=== PATIENT | female | born 1990 | race Caucasian/White ===

== ENCOUNTER 2018-05-24 05:25 | Day surgery (SDC) | payer BC ==
[2018-05-23 10:56] VITALS: BMI 23.1
[~2018-05-24 05:25] MED LIST: LIDOCAINE 1% P/F 10 MG/ML VIAL INF ONE
[2018-05-24] MEDS ORDERED: PROPOFOL 20 ML ONE (10:43)
[2018-05-24] MEDS ORDERED: MIDAZOLAM HCL 2 MG/2 ML SINGLE DOSE VIAL ONE (10:43)
[2018-05-24] MEDS ORDERED: oxyCODONE HCL 5 MG TABLET PO PRN ×2 (10:50)
[2018-05-24] MEDS ORDERED: ONDANSETRON 4 MG/2 ML VIAL IVPUSH PRN (10:50)
[2018-05-24] MEDS ORDERED: LACTATED RINGERS SOLUTION 1,000 ML IV SCH (11:00)
[2018-05-24] MEDS ORDERED: IBUPROFEN 800 MG/8 ML IJ IVPB PRN (12:30)
[2018-05-24] MEDS ORDERED: ACETAMINOPHEN 325 MG TABLET (FP) PO PRN (12:30)
--- NOTE | 2018-05-24 12:30 | HP ---
History & Physical Update - History History: No Change - Physical Physical: No Change - Assessment Assessment: No Change - Plan Plan: No Change (Agree with H&P from 05/22, plan for bartholin gland marsupialization)
[2018-05-24] MEDS ORDERED: IBUPROFEN 600 MG TABLET (FP) PO ONE ×2 (15:32→15:56)
[2018-05-24 16:40] VITALS: TEMP 98.3
[2018-05-24 18:12] VITALS: BP 97/62; PULSE 62
--- NOTE | 2018-05-25 13:41 | OP ---
Operative Note - Note: Operative Date: 05/24/18 ([id number]) Pre-Operative Diagnosis: left bartholin gland cyst Operation: left bartholin gland cyst marsupialization Findings: 2cm left bartholin gland cyst Post-Operative Diagnosis: Same as Pre-op Surgeon: Jeanne Mccrary Anesthesiologist/PRINCIPAL SYSTEMS ENGINEER: Tori Lockett Anesthesia: General Estimated Blood Loss (mls): 25 Operative Report Dictated: Yes
--- NOTE | 2018-05-26 08:08 | OP ---
DATE OF OPERATION: 05/24/2018 PREOPERATIVE DIAGNOSIS: Left Bartholin cyst. POSTOPERATIVE DIAGNOSIS: Left Bartholin cyst. PROCEDURE: Marsupialization of left Bartholin gland cyst. ANESTHESIA: General by Tori Lockett, REF-DRILLING ASSISTANT. COMPLICATIONS: None. ESTIMATED BLOOD LOSS: 25 mL. DISPOSITION: Stable to PACU. BRIEF HISTORY AND PROCEDURE: Patient is a 27-year-old female who had been seen in the office with complaints of a Bartholin gland cyst. The patient was counseled on her options and elected to undergo a marsupialization in the operating room. The patient was admitted to [facility] on May 24, 2018, and consents for the procedure which had been signed in the office were reconfirmed. The patient was taken back to the operating room, given general anesthesia and placed in the dorsal lithotomy position and was prepped and draped in the usual sterile fashion. A hard timeout was performed and the Bartholin gland cyst was identified and the skin on the labia minora was incised over the area of the cyst. The cyst wall was identified and grasped and tagged with two 3-0 Vicryl sutures. The cyst was then entered sharply with the scalpel. Clear fluid was noted to drain. The cyst wall was then sutured to the vulvar skin leaving the cyst open for drainage in the standard marsupialization procedure. Minimal bleeding was noted from the surgical site where any bleeding was controlled with the Bovie device. Due to slight bleeding after usage of the Bovie a small amount of packing was placed into the cyst opening and a gauze was applied. All instruments were removed from the area and the patient was awoken from anesthesia and sponge and instrument count was reported to be correct. The patient had tolerated the procedure well. Was recovering in stable condition in the PACU after the procedure. GITA JOSEPH DO /[id number]
== END 2018-05-24 17:00 | disposition home or self-care (01) ==
LOC: JASU-SURG 05:25
PROVIDERS: ATTEND Obstetrics & Gynecology
PROC: 0U9L0ZZ Drainage of Vestibular Gland, Open Approach (ICD-10-PCS; principal; 2018-05-24 12:00)
DX: N75.0 Cyst of Bartholin's gland (principal)
CPT/HCPCS: 86850; 86900; 86901; 94760

== ENCOUNTER 2018-09-12 19:06 | Emergency (ER) | payer BC ==
--- NOTE | 2018-09-12 19:21 | PDOC ---
Rapid Medical Evaluation Time Seen by Provider: 09/12/18 19:18 Medical Evaluation: Allergies Allergy/AdvReac Type Severity Reaction Status Date / Time No Known Allergies Allergy Verified 05/24/18 11:53 09/12/18 19:19 I have performed a brief in-person evaluation of this patient. 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 Discharge Disposition - Diagnosis - Referrals - Patient Instructions - Post Discharge Activity
[2018-09-12 19:26] VITALS: BP 106/64; PULSE 96; TEMP 97.9; BMI 22.1
[2018-09-12 20:00] LABS: BASO % 0.6 % (0-2.0); EOS % 1.9 % (0-4.5); HEMATOCRIT 34.9 % (32.4-45.2); HEMOGLOBIN 12.1 GM/dL (10.7-15.3); LYMPH % 25.1 % (8-40); MCH 32.4 pg (25.7-33.7); MCHC 34.8 g/dl (32.0-36.0); MEAN CELL VOLUME 93.1 fl (80-96); MONO % 9.9 % (3.8-10.2); NEUT % 62.5 % (42.8-82.8); PLATELET COUNT 264 K/MM3 (134-434); RBC 3.74 M/mm3 (3.60-5.2); RDW 13.4 % (11.6-15.6); WHITE BLOOD COUNT 7.1 K/mm3 (4.0-10.0)
[2018-09-12 20:02] LABS: HCG,QUALITATIVE URINE Positive
[2018-09-12 20:06] LABS: URINE APPEARANCE CLEAR; URINE BILIRUBIN NEGATIVE (<2.0 mg/dL); URINE COLOR COLORLESS; URINE GLUCOSE (UA) NEGATIVE (NEGATIVE); URINE KETONE NEGATIVE (NEGATIVE); URINE LEUK ESTERASE NEGATIVE (NEGATIVE); URINE NITRITE NEGATIVE (NEGATIVE); URINE PROTEIN NEGATIVE (NEGATIVE); URINE UROBILINOGEN NEGATIVE mg/dL (0.2-1.0)
[2018-09-12 20:30] LABS: ANION GAP 7 MMOL/L (8-16); BLOOD UREA NITROGEN 10 mg/dL (7-18); CALCIUM 8.6 mg/dL (8.5-10.1); CHLORIDE 105 mmol/L (98-107); CO2 25 mmol/L (21-32); CREATININE 0.5 mg/dL (0.55-1.3); GLUCOSE,RANDOM 90 mg/dL (74-106); SODIUM 137 mmol/L (136-145)
--- NOTE | 2018-09-12 21:30 | PDOC ---
History of Present Illness - General Chief Complaint: Labor Assessment Stated Complaint: PCP SENT/EVALUATION/10 WKS Time Seen by Provider: 09/12/18 19:18 Past History - Past Medical History Allergies/Adverse Reactions: Allergies Allergy/AdvReac Type Severity Reaction Status Date / Time No Known Allergies Allergy Verified 05/24/18 11:53 Home Medications: Ambulatory Orders Prenat 115/Iron Fum/Folic/Dss [ 19 Tablet] 1 tab PO DAILY 09/12/18 Anemia: No Asthma: No Cancer: No Cardiac Disorders: No CVA: No COPD: No CHF: No Dementia: No Diabetes: No GI Disorders: No Disorders: No HTN: No Hypercholesterolemia: No Liver Disease: No Seizures: No Thyroid Disease: No - Surgical History Abdominal Surgery: No Appendectomy: No Cardiac Surgery: No - Suicide/Smoking/Psychosocial Hx Smoking History: Never smoked Information on smoking cessation initiated: No Hx Alcohol Use: No Drug/Substance Use Hx: No Substance Use Type: None Hx Substance Use Treatment: No *Physical Exam - Vital Signs Last Vital Signs Temp Pulse Resp BP Pulse Ox 97.9 F 96 H 20 106/64 100 09/12/18 19:23 09/12/18 19:23 09/12/18 19:23 09/12/18 19:23 09/12/18 19:23 Moderate Sedation - Procedure Monitoring Vital Signs: Procedure Monitoring Vital Signs Temperature 97.9 F 09/12/18 19:23 Pulse Rate 96 H 09/12/18 19:23 Respiratory Rate 20 09/12/18 19:23 Blood Pressure 106/64 09/12/18 19:23 O2 Sat by Pulse Oximetry (%) 100 09/12/18 19:23 ED Treatment Course - LABORATORY CBC & Chemistry Diagram: 09/12/18 19:46 09/12/18 19:46 - ADDITIONAL ORDERS Additional order review: Laboratory Results 09/12/18 09/12/18 19:46 19:46 Sodium 137 Potassium 4.0 Chloride 105 Carbon Dioxide 25 Anion Gap 7 L BUN 10 Creatinine 0.5 L Creat Clearance w eGFR > 60 Random Glucose 90 Calcium 8.6 Beta HCG, Quant 00233.2 Urine Color Colorless Urine Appearance Clear Urine pH 7.0 Ur Specific [place] 1.003 L Urine Protein Negative Urine Glucose (UA) Negative Urine Ketones Negative Urine Blood Negative Urine Nitrite Negative Urine Bilirubin Negative Urine Urobilinogen Negative Ur Leukocyte Esterase Negative Urine HCG, Qual Positive 09/12/18 19:46 RBC 3.74 MCV 93.1 MCHC 34.8 RDW 13.4 MPV 8.0 D Neutrophils % 62.5 D Lymphocytes % 25.1 D Monocytes % 9.9 Eosinophils % 1.9 Basophils % 0.6 Medical Decision Making - Medical Decision Making 09/12/18 21:29 28yoF at 10w by dates presents w/ likely missed . - EVUS - beta *DC/Admit/Observation/Transfer Diagnosis at time of Disposition: - Discharge Dispostion Disposition: HOME Decision to Admit order: No - Referrals Referrals: Jeanne Mccrary DO [Primary Care Provider] - - Patient Instructions Additional Instructions: Please call Dr. Mccrary's office in the morning. You have what is called a "missed ". The fetus does not have a heartbeat and is not growing. This means that you need a procedure to remove the from your uterus. Dr. Mccrary's office will arrange this with you. Return to ER for: vaginal bleeding more than 1 pad per hour fever over 100.4 abnormal pus or bad smelling vaginal discharge severe pelvic pain. - Post Discharge Activity
== END 2018-09-12 23:49 | disposition home or self-care (01) ==
LOC: JER 19:06
DX: O26.891 Other specified pregnancy related conditions, first trimester (principal); Z3A.10 10 weeks gestation of pregnancy
CPT/HCPCS: 36415; 76801-TC; 80048; 81003; 84702; 84703; 85025; 87086; 99282-25

== ENCOUNTER 2018-09-19 04:53 | Day surgery (SDC) | payer BC ==
[2018-09-17 11:11] VITALS: BMI 22.1
[2018-09-19] MEDS ORDERED: ACETAMINOPHEN 325 MG TABLET (FP) PO PRN (10:42)
[2018-09-19] MEDS ORDERED: IBUPROFEN 800 MG/8 ML IJ IVPB PRN (10:42)
--- NOTE | 2018-09-19 10:42 | HP ---
History & Physical Update - History History: No Change - Physical Physical: No Change - Assessment Assessment: No Change - Plan Plan: No Change (Agree with H&P from 09/14/18 - missed ab at 8 weeks for suction D &C)
[2018-09-19] MEDS ORDERED: LACTATED RINGERS SOLUTION 1,000 ML IV SCH ×2 (10:45→12:30)
[2018-09-19] MEDS ORDERED: ONDANSETRON 4 MG/2 ML VIAL IVPUSH PRN (12:27)
[2018-09-19] MEDS ORDERED: oxyCODONE HCL 5 MG TABLET PO PRN (12:27)
--- NOTE | 2018-09-19 12:45 | OP ---
Operative Note - Note: Operative Date: 09/19/18 Pre-Operative Diagnosis: missed Operation: suction D&C Post-Operative Diagnosis: Same as Pre-op Surgeon: Jeanne Mccrary Anesthesiologist/INSURANCE RISK ANALYST: Griselda Menon Anesthesia: EMIGDIO Specimens Removed: products of conception Estimated Blood Loss (mls): 15 Operative Report Dictated: Yes
[2018-09-19 13:56] VITALS: TEMP 97.6
[2018-09-19 15:13] VITALS: BP 90/54; PULSE 81
--- NOTE | 2018-09-19 20:18 | OP ---
DATE OF OPERATION: 09/19/2018 PREOPERATIVE DIAGNOSIS: Missed , approximately 8 weeks' gestation. POSTOPERATIVE DIAGNOSIS: Missed , approximately 8 weeks' gestation. PROCEDURE: Suction dilation and curettage. SURGEON: Jeanne Mccrary D.O. ANESTHESIA: MAC ANESTHESIOLOGIST: Griselda Menon MD SPECIMENS REMOVED: Products of conception sent to pathology for fresh evaluation and chromosomal analysis. ESTIMATED BLOOD LOSS: 50 mL. COMPLICATIONS: None. DISPOSITION: Stable to PACU. COUNTS: Sponge, needle, instrument counts correct. BRIEF HISTORY AND PROCEDURE: Patient is a 28-year-old female who had been seen in the office several times for positive test and 3 recent ultrasounds were found to have no progression in the growth and no heart rate noted. The patient was diagnosed with missed , she was counseled on her options, and she elected to undergo the above listed procedure. Patient was admitted to [facility] on September 19, 2018, consents for procedure which were signed on September 14, 2018, were confirmed. The patient was then taken back to the operating room and given MAC anesthesia by Dr. Griselda Menon and placed in dorsal lithotomy position. A hard timeout was performed after she was prepped and draped in the usual sterile fashion. A speculum was placed inside the vagina. The cervix was grasped with a tenaculum and dilated to accommodate a size 7 suction curet, which was advanced to the fundus. Several passes of the suction curet were completed, and then with a sharp curet, all 4 vila of the uterus were curetted until adequate uterine cry was appreciated, and then one final pass of the suction curet to remove all the tissue was completed bleeding was minimal. The tenaculum was removed from the cervix. No bleeding from the tenaculum sites was appreciated. All other instruments were removed from the vagina, and sponge and instrument counts were reported to be correct. The patient tolerated the procedure in stable condition in the PACU at the time of this dictation. JEANNE MCCRARY DO /[id number]
--- NOTE | 2018-09-20 18:08 | PATH ---
Surgical Pathology Report Patient Name: LAISHA BAUTISTA Med. Rec. #: [id number] /Age/Gender: 1990 (Age: 28) / F Account: [id number] Location: [facility] SURGICAL Taken: 09/19/2018 Received: 09/19/2018 Reported: 09/20/2018 Physicians: Jeanne Mccrary M.D. Specimen(s) Received PRODUCTS OF CONCEPTION Clinical History Missed Final Diagnosis PRODUCTS OF CONCEPTION: CHORIONIC VILLI PRESENT, CONSISTENT WITH PRODUCTS OF CONCEPTION. Electronically Signed Nicole Berman M.D. Gross Description Received fresh labeled "products of conception," is an 8.5 x 7.0 x 1.0 cm aggregate of eubanks-red soft tissue fragments admixed with blood clot. Villous tissue is identified. No somatic tissue is identified. A senior human resources representative portion of villous tissue is placed in RPMI solution and sent for chromosomal analysis. An additional senior human resources representative portion is submitted in one cassette. /09/19/2018 saudi09/19/2018
== END 2018-09-19 14:45 | disposition home or self-care (01) ==
LOC: JASU-SURG 04:53
PROVIDERS: ATTEND Obstetrics & Gynecology
PROC: 10D17ZZ Extraction of Products of Conception, Retained, Via Natural or Artificial Opening (ICD-10-PCS; principal; 2018-09-19 11:30)
DX: O02.1 Missed abortion (principal); Z3A.08 8 weeks gestation of pregnancy
CPT/HCPCS: 88305-TC; 94760

== ENCOUNTER 2022-04-18 10:30 | Inpatient (IN) | payer BC ==
[2022-04-18 11:33] LABS: BASO % 0.4 % (0-2.0); EOS % 0.6 % (0-4.5); HEMATOCRIT 37.4 % (32.4-45.2); HEMOGLOBIN 12.3 GM/dL (10.7-15.3); LYMPH % 14.1 % (8-40); MCH 30.3 pg (25.7-33.7); MCHC 32.9 g/dl (32.0-36.0); MEAN PLT VOLUME 9.4 fl (7.5-11.1); MONO % 9.4 % (3.8-10.2); NEUT % 75.5 % (42.8-82.8); PLATELET COUNT 204 10^3/uL (134-434); RBC 4.06 M/mm3 (3.60-5.2); RDW 14.3 % (11.6-15.6); WHITE BLOOD COUNT 11.5 K/mm3 (4.0-10.0)
[2022-04-18 11:39] LABS: INR 0.86 (0.83-1.09); PROTHROMBIN TIME (PATIENT) 9.9 SEC (9.7-13.0)
[2022-04-18 11:42] LABS: ACTIVATED PTT 27.3 SECONDS (25.2-36.5)
[2022-04-18] MEDS ORDERED: NALOXONE HCL 0.4 MG/ML VIAL IVPUSH PRN (11:59)
[2022-04-18] MEDS ORDERED: FENTANYL/BUPIVACAINE/NS/PF - PCEA - 50 ML DISP.SYRIN EP SCH (12:00)
[2022-04-18 12:01] LABS: CREATININE 0.6 mg/dL (0.55-1.3)
[2022-04-18] MEDS ORDERED: BUPIVACAINE HCL/PF 0.25% (2.5MG/ML) 10 ML VIAL ONE (12:01)
[2022-04-18] MEDS ORDERED: FENTANYL/BUPIVACAINE/NS/PF - PCEA - 50 ML DISP.SYRIN EP ONE (12:21)
[2022-04-18 12:23] LABS: SYPHILIS W/ RPR CONF NON-REACTIVE (NONREACTIVE)
[2022-04-18 12:30] VITALS: BMI 29.8
[2022-04-18] MEDS ORDERED: ELECTROLYTE-148 SOLN 1,000 ML IV SCH (14:00)
[2022-04-18] MEDS ORDERED: BISACODYL 10 MG SUPP.RECT RC PRN (15:22)
[2022-04-18] MEDS ORDERED: WITCH HAZEL 50% (TUCKS) 40 PAD/JAR PAD TP PRN (15:22)
[2022-04-18] MEDS ORDERED: BENZOCAINE 20% 57 GM BOTTLE TP PRN (15:22)
[2022-04-18] MEDS ORDERED: METHYLERGONOVINE MALEATE 0.2 MG/1 ML AMP IM PRN (15:22)
[2022-04-18] MEDS ORDERED: BENZOCAINE 28 GM HEMORRHOIDAL OINTMENT TP PRN (15:22)
[2022-04-18] MEDS ORDERED: ACETAMINOPHEN 325 MG TABLET (FP) PO PRN (15:22)
[2022-04-18] MEDS ORDERED: OXYTOCIN 20 UNITS in 0.9% NS 20 UNIT/1,000 ML INFUS.BAG IV SCH (15:30)
[2022-04-18] MEDS ORDERED: OXYTOCIN 20 UNITS in 0.9% NS 20 UNIT/1,000 ML INFUS.BAG IV ONE (16:01)
[2022-04-18] MEDS ORDERED: LIDOCAINE HCL 1% PRESERVATIVE FREE - 30ML VIAL ONE (16:01)
[2022-04-18] MEDS: FERROUS SO4 325 MG TABLET (FP) PO SCH (18:00)
[2022-04-18 19:52] LABS: CORD BASE EXCESS -6.9 mmol/L (0-2); CORD HCO3 20.3 mmHg (20-29); CORD PCO2 46.8 mmHg (30-78); CORD pH 7.255 (7.14-7.44)
[2022-04-18 19:55] LABS: CORD HCO3 22.1 mmHg (20-29); CORD PCO2 57.9 mmHg (30-78); CORD pH 7.2 (7.14-7.44)
[2022-04-18] MEDS ORDERED: IBUPROFEN 600 MG TABLET (FP) PO ONE (20:03)
[2022-04-18] MEDS: IBUPROFEN 600 MG TABLET (FP) PO PRN (20:10)
[2022-04-19] MEDS: FERROUS SO4 325 MG TABLET (FP) PO SCH ×3 (08:38→19:24)
[2022-04-19 09:31] LABS: BASO % 0.3 % (0-2.0); EOS % 0.6 % (0-4.5); HEMATOCRIT 32.3 % (32.4-45.2); HEMOGLOBIN 10.7 GM/dL (10.7-15.3); LYMPH % 15.4 % (8-40); MCH 30.8 pg (25.7-33.7); MCHC 33.2 g/dl (32.0-36.0); MEAN CELL VOLUME 92.8 fl (80-96); MEAN PLT VOLUME 9.4 fl (7.5-11.1); NEUT % 74.7 % (42.8-82.8); PLATELET COUNT 184 10^3/uL (134-434); RBC 3.48 M/mm3 (3.60-5.2); RDW 14.5 % (11.6-15.6); WHITE BLOOD COUNT 13.8 K/mm3 (4.0-10.0)
[2022-04-19] MEDS: PRENATAL VITAMINS W/ FOLIC ACID TABLET (FP) PO SCH (09:35)
[2022-04-19] MEDS ORDERED: oxyCODONE HCL 5 MG TABLET PO PRN (15:22)
[2022-04-19] MEDS ORDERED: SENNOSIDES/DOCUSATE COMBO (SENNA PLUS) TABLET (UD) PO PRN (22:00)
[2022-04-20] MEDS: IBUPROFEN 600 MG TABLET (FP) PO PRN (09:45)
[2022-04-20] MEDS: PRENATAL VITAMINS W/ FOLIC ACID TABLET (FP) PO SCH (09:45)
[2022-04-20] MEDS: FERROUS SO4 325 MG TABLET (FP) PO SCH ×2 (09:45→12:29)
[2022-04-20 14:12] VITALS: BP 118/75; PULSE 82; RESP 20; TEMP 98.1
== END 2022-04-20 15:40 | disposition home or self-care (01) | DRG 807 ==
LOC: JLDR 10:30 → J3W 21:42
PROVIDERS: ADMIT Obstetrics & Gynecology; ATTEND Obstetrics & Gynecology
PROC: 10E0XZZ Delivery of Products of Conception, External Approach (ICD-10-PCS; principal; 2022-04-18)
DX: O80 Encounter for full-term uncomplicated delivery (principal); Z37.0 Single live birth; Z3A.39 39 weeks gestation of pregnancy
CPT/HCPCS: 36415; 36600; 59409; 80048; 82803; 85025; 85610; 85730; 86708; 86780; 86803; 86850; 86900; 86901; C9803-CS; U0003; U0005

== ENCOUNTER 2022-11-11 08:52 | Emergency (ER) | payer BC ==
[2022-11-11 09:07] VITALS: BP 105/66; PULSE 82; RESP 20; TEMP 98; BMI 23.1
[2022-11-11] MEDS ORDERED: ONDANSETRON *ODT* 4 MG TABLET SL ONE (09:23)
[2022-11-11] MEDS ORDERED: ONDANSETRON *ODT* 4 MG TABLET ONE (09:38)
== END 2022-11-11 12:04 | disposition home or self-care (01) ==
LOC: JERFT 08:52
DX: R11.10 Vomiting, unspecified (principal); R19.7 Diarrhea, unspecified
CPT/HCPCS: 0241U-QW; 99283-25; Q0162